=== PATIENT | female | born 1995 | race Caucasian/White ===

== ENCOUNTER 2016-12-18 21:38 | Emergency (ER) | payer OTHER ==
[2016-12-18] MEDS ORDERED: AMOX 875 MG/CLAV 125 MG 1 EACH TABLET ONE (22:20)
== END 2016-12-18 22:55 | disposition home or self-care (01) ==
LOC: ED 21:38
DX: S01.85XA Open bite of other part of head, initial encounter (principal); W54.0XXA Bitten by dog, initial encounter; Y92.009 Unspecified place in unspecified non-institutional (private) residence as the place of occurrence of the external cause
CPT/HCPCS: 99283; 99282; A9270